=== PATIENT | male | born 1930 | race Asian ===

== ENCOUNTER 2016-08-05 01:41 | Emergency (ER) | payer MEDICARE, OTHER ==
[~2016-08-05] VITALS: Ht 162.6 cm; Wt 70.3 kg
[2016-08-05 04:08] LABS: Basophils # (auto) 0 uL; Eosinophils # (auto) 0 uL; Hematocrit 37.6 % (41.0-53.0); Hemoglobin 12.4 g/dL (13.5-17.5); Lymphocytes # (auto) 0.3 uL; Lymphocytes % (auto) 3.2 % (10.0-50.0); Mean Corpuscular Hemoglobin 29.8 pg (28.0-32.0); Mean Corpuscular Hgb Conc. 33.1 g/dL (32.0-36.0); Mean Corpuscular Volume 89.9 fL (80.0-100.0); Mean Platelet Volume 7.8 fL (7.4-10.4); Monocytes # (auto) 0.9 uL; Monocytes % (auto) 9.6 % (0.0-12.0); Neutrophils # (auto) 8.6 uL; Neutrophils % (auto) 87.2 % (37.0-80.0); Platelet Count (auto) 195 10^3/uL (140-450); Red Cell Distribution Width 13.1 % (11.6-16.0); White Blood Cell 9.8 10^3/uL (4.4-10.8)
[2016-08-05 04:23] LABS: INR 1.05 (0.9-1.15); Partial Thromboplastin Time 27.8 sec (22.64-33.71); Prothrombin Time 10.8 sec (9.37-12.3)
[2016-08-05 04:31] LABS: Albumin 3.2 g/dL (3.4-5.0); Potassium 4.5 mmol/L (3.5-5.1)
[2016-08-05 04:33] LABS: BUN/Creatinine Ratio 17.2
[2016-08-05 04:34] LABS: B-Type Natriuretic Peptide 82.95 pg/mL (0-100)
[2016-08-05 04:36] LABS: Bilirubin, Total 0.4 mg/dL (0.2-1.0); Total Protein 8.4 g/dL (6.4-8.2)
[2016-08-05 04:50] LABS: Temperature: 23.1 C (20.0-25.0)
[2016-08-05 07:48] VITALS: BP 92/57
== END 2016-08-05 08:17 | disposition home or self-care (01) ==
LOC: EDBD 01:41 → ER 01:41 → EDUNIT# 01:41 → ER 08:17
DX: R53.1 Weakness (principal); E11.65 Type 2 diabetes mellitus with hyperglycemia; N28.9 Disorder of kidney and ureter, unspecified; I10 Essential (primary) hypertension; Z86.73 Personal history of transient ischemic attack (TIA), and cerebral infarction without residual deficits
CPT/HCPCS: 36415; 71010; 80053; 82962; 83880; 84484; 85025; 85610; 85730; 93005

== ENCOUNTER 2017-01-18 08:41 | Inpatient (IN) | payer OTHER ==
[~2017-01-18] VITALS: Ht 167.6 cm; Wt 67.0 kg
[2017-01-18] MEDS ORDERED: SODIUM CHLORIDE 0.9% 1,000 ML IV ONE ×3 (09:31→10:27)
[2017-01-18] MEDS ORDERED: ONDANSETRON HCL 4 MG/2 ML VIAL IV ONE (09:45)
[2017-01-18] MEDS ORDERED: MORPHINE SULF INJ 2 MG/ML SYRINGE 1ML IV ONE (09:45)
[2017-01-18 09:56] LABS: CONDITION Y; Hematocrit 42.7 % (41.0-53.0); Hemoglobin 14.6 g/dL (13.5-17.5); Mean Corpuscular Hemoglobin 30.8 pg (28.0-32.0); Mean Corpuscular Hgb Conc. 34.1 g/dL (32.0-36.0); Mean Corpuscular Volume 90.3 fL (80.0-100.0); Mean Platelet Volume 8.8 fL (7.4-10.4); Platelet Count (auto) 214 10^3/uL (140-450); Red Cell Distribution Width 13.5 % (11.6-16.0); White Blood Cell 18.7 10^3/uL (4.4-10.8)
[2017-01-18 09:59] LABS: Metamyelocytes % 0; Myelocytes % 0; Promyelocytes % 0; Reactive Lymphocytes 0
[2017-01-18 10:06] LABS: Albumin 3.7 g/dL (3.4-5.0); BUN/Creatinine Ratio 12.4; Bilirubin, Total 0.6 mg/dL (0.2-1.0); Calcium 9.3 mg/dL (8.5-10.1); Potassium 4.9 mmol/L (3.5-5.1); Total Protein 9.5 g/dL (6.4-8.2)
[2017-01-18 10:19] LABS: Lactic Acid w/Reflex 4.6 mmol/L (0.4-2.0)
[2017-01-18 10:21] LABS: Platelet Estimate Adequate; RBC Morphology Normal
[2017-01-18 10:24] LABS: INR 1.01 (0.9-1.15); Partial Thromboplastin Time 25.7 sec (22.64-33.71)
[2017-01-18] MEDS ORDERED: metroNIDAZOLE 500MG/100ML 100 ML IV ONE (10:30)
[2017-01-18] MEDS ORDERED: cefTRIAXone 1GM/50ML D5W 50 ML IV ONE (10:30)
[2017-01-18 10:34] LABS: B-Type Natriuretic Peptide 61.65 pg/mL (0-100)
[2017-01-18 10:35] LABS: Temperature: 24.6 C (20.0-25.0)
[2017-01-18 10:47] LABS: REFLEX LACTIC ACID YES OR NO YES
[2017-01-18] MEDS ORDERED: ACETAMINOPHEN 325 MG TAB PO PRN (12:00)
[2017-01-18] MEDS ORDERED: ONDANSETRON HCL 4 MG/2 ML VIAL IV PRN (12:00)
[2017-01-18] MEDS ORDERED: TEMAZEPAM 15 MG CAP PO PRN (12:00)
[2017-01-18] MEDS ORDERED: MORPHINE SULF INJ 2 MG/ML SYRINGE 1ML IV PRN ×2 (12:00)
[2017-01-18] MEDS ORDERED: NITROGLYCERIN 0.4 MG SL TAB SL PRN (12:00)
[2017-01-18] MEDS ORDERED: DEXTROSE (50%) 50ML SYRG IV PRN ×2 (12:00)
[2017-01-18] MEDS ORDERED: cloNIDine HCL 0.1 MG TAB PO PRN (12:00)
[2017-01-18] MEDS ORDERED: DOCUSATE SOD 100 MG CAP PO PRN (12:00)
[2017-01-18] MEDS ORDERED: HYDROcodone-ACET 5/325MG TAB PO PRN (12:00)
[2017-01-18 12:09] LABS: Amylase 62 U/L (25-115)
[2017-01-18] MEDS ORDERED: ASPirin-EC 81 mg tab PO ONE (12:15)
[2017-01-18] MEDS: SODIUM CHLORIDE 0.9% 1,000 ML IV SCH ×2 (12:24→21:02)
[2017-01-18 13:24] LABS: Urine Bilirubin Negative (Negative); Urine Blood Negative /uL (Negative); Urine Color Yellow (Yellow); Urine Nitrite Negative (Negative); Urine RBC 1 /hpf (0 - 3); Urine Urobilinogen Normal (Negative); Urine pH 5.5 (5.0-8.0)
[2017-01-18 13:26] LABS: Urine Glucose 4+ mg/dL (Normal); Urine Ketone 1+ (Negative)
[2017-01-18] MEDS: metroNIDAZOLE 500MG/100ML 100 ML IV SCH ×2 (14:00→21:19)
[2017-01-18] MEDS: LISINOPRIL 5 MG TAB PO SCH (14:08)
[2017-01-18] MEDS: FAMOTIDINE 20 MG TAB PO SCH ×2 (14:08→21:19)
[2017-01-18] MEDS: glipiZIDE 5 MG TAB PO SCH ×2 (14:09→17:53)
[2017-01-18] MEDS ORDERED: CLON0.1T PO (14:25)
[2017-01-18] MEDS ORDERED: INSLANTI SC (14:25)
[2017-01-18] MEDS ORDERED: CHOL20007 PO (14:25)
[2017-01-18] MEDS ORDERED: ASPI81CH43 GT (14:25)
[2017-01-18] MEDS ORDERED: GLIP-115 PO (14:25)
[2017-01-18] MEDS ORDERED: LISI2.5T47 PO (14:25)
[2017-01-18 14:27] VITALS: BP 148/91
[2017-01-18 15:08] LABS: Lactic Acid w/Reflex 2.6 mmol/L (0.4-2.0)
[2017-01-18 15:14] LABS: REFLEX LACTIC ACID YES OR NO YES
[2017-01-18 17:00] VITALS: BP 139/72
[2017-01-18] MEDS ORDERED: InsuLIN REG 1unit/0.01ml Soln (100units/ml) SC SCH (17:00)
[2017-01-18] MEDS ORDERED: ACCU-CHEK COMFORT CURVE STRIP VI SCH (17:00)
[2017-01-18] MEDS: ACCU-CHEK COMFORT CURVE STRIP VI SCH ×2 (17:00→21:29)
[2017-01-18] MEDS: InsuLIN REG 1unit/0.01ml Soln (100units/ml) SC SCH ×2 (17:53→21:29)
[2017-01-18] MEDS: ATORVASTATIN 20 MG TAB PO SCH (21:19)
[2017-01-18] MEDS: INSULIN DETEMIR(LEVEMIR) 1unit/0.01ml Soln (100units/ml) SC SCH (21:29)
[2017-01-18 22:00] VITALS: BP 149/90
[2017-01-19] MEDS: SODIUM CHLORIDE 0.9% 1,000 ML IV SCH ×3 (04:44→21:31)
[2017-01-19 05:00] VITALS: BP 138/70
[2017-01-19] MEDS: LEVOTHYROXINE SODIUM 25 MCG TAB PO SCH (06:22)
[2017-01-19] MEDS: metroNIDAZOLE 500MG/100ML 100 ML IV SCH ×3 (06:22→21:49)
[2017-01-19] MEDS: ACCU-CHEK COMFORT CURVE STRIP VI SCH ×4 (06:27→21:50)
[2017-01-19] MEDS: InsuLIN REG 1unit/0.01ml Soln (100units/ml) SC SCH ×4 (06:27→21:50)
[2017-01-19 07:39] LABS: Basophils # (auto) 0 uL; Basophils % (auto) 0.2 % (0.0-2.0); CONDITION Y; Eosinophils # (auto) 0 uL; Eosinophils % (auto) 0.3 % (0.0-7.0); Hematocrit 37.2 % (41.0-53.0); Hemoglobin 12.5 g/dL (13.5-17.5); Lymphocytes # (auto) 1.7 uL; Lymphocytes % (auto) 12.8 % (10.0-50.0); Mean Corpuscular Hemoglobin 30.1 pg (28.0-32.0); Mean Corpuscular Hgb Conc. 33.6 g/dL (32.0-36.0); Mean Corpuscular Volume 89.8 fL (80.0-100.0); Mean Platelet Volume 8.3 fL (7.4-10.4); Monocytes % (auto) 7.6 % (0.0-12.0); Neutrophils # (auto) 10.8 uL; Neutrophils % (auto) 79.1 % (37.0-80.0); Platelet Count (auto) 210 10^3/uL (140-450); Red Cell Distribution Width 13.8 % (11.6-16.0); White Blood Cell 13.7 10^3/uL (4.4-10.8)
[2017-01-19 07:56] LABS: Albumin 2.9 g/dL (3.4-5.0); BUN/Creatinine Ratio 13.2; Bilirubin, Total 0.6 mg/dL (0.2-1.0); Calcium 8.3 mg/dL (8.5-10.1); Potassium 4.4 mmol/L (3.5-5.1); Total Protein 7.9 g/dL (6.4-8.2)
[2017-01-19] MEDS: glipiZIDE 5 MG TAB PO SCH ×3 (08:41→18:23)
[2017-01-19 09:00] VITALS: BP 135/62
[2017-01-19] MEDS ORDERED: cefTRIAXone 1GM/50ML D5W 50 ML IV SCH (09:00)
[2017-01-19] MEDS: LISINOPRIL 5 MG TAB PO SCH (10:27)
[2017-01-19] MEDS: MULTIPLE VITAMIN TAB PO SCH (10:28)
[2017-01-19] MEDS: CHOLECALCIFEROL (VITD3) 1,000 UNIT TAB PO SCH (10:29)
[2017-01-19] MEDS: ASPirin-EC 81 mg tab PO SCH (10:30)
[2017-01-19] MEDS: FAMOTIDINE 20 MG TAB PO SCH (10:30)
[2017-01-19 17:06] VITALS: BP 127/97
[2017-01-19 19:41] LABS: Urine Bilirubin Negative (Negative); Urine Color Yellow (Yellow); Urine Glucose Normal (Normal); Urine Ketone TRACE (Negative); Urine Mucus FEW (None Seen); Urine Nitrite Negative (Negative); Urine RBC 1 /hpf (0 - 3); Urine Squamous Epithelial Cell FEW /hpf (<5); Urine Urobilinogen Normal (Negative)
[2017-01-19 19:46] LABS: Urine Blood 1+ /uL (Negative)
[2017-01-19] MEDS: PANTOPRAZOLE 40 MG TAB PO SCH (21:49)
[2017-01-19] MEDS: SUCRALFATE 1 GM/10 ML ORAL SUSP PO SCH (21:49)
[2017-01-19] MEDS: ATORVASTATIN 20 MG TAB PO SCH (21:49)
[2017-01-19] MEDS: INSULIN DETEMIR(LEVEMIR) 1unit/0.01ml Soln (100units/ml) SC SCH (21:50)
[2017-01-19 22:00] VITALS: BP 145/74
[2017-01-20] MEDS ORDERED: HALOPERIDOL LACTATE 5 MG/ML INJ VIAL IM ONE (04:15)
[2017-01-20 05:00] VITALS: BP 147/87
[2017-01-20] MEDS: SODIUM CHLORIDE 0.9% 1,000 ML IV SCH (05:22)
[2017-01-20] MEDS: LEVOTHYROXINE SODIUM 25 MCG TAB PO SCH (05:31)
[2017-01-20] MEDS: SUCRALFATE 1 GM/10 ML ORAL SUSP PO SCH ×3 (05:32→17:00)
[2017-01-20] MEDS: metroNIDAZOLE 500MG/100ML 100 ML IV SCH (05:32)
[2017-01-20] MEDS: InsuLIN REG 1unit/0.01ml Soln (100units/ml) SC SCH ×3 (05:32→17:00)
[2017-01-20] MEDS: ACCU-CHEK COMFORT CURVE STRIP VI SCH ×3 (05:32→17:00)
[2017-01-20 07:28] LABS: Basophils # (auto) 0 uL; Basophils % (auto) 0.4 % (0.0-2.0); CONDITION Y; Eosinophils # (auto) 0.1 uL; Eosinophils % (auto) 0.5 % (0.0-7.0); Hematocrit 39.4 % (41.0-53.0); Hemoglobin 13.4 g/dL (13.5-17.5); Lymphocytes # (auto) 1.9 uL; Mean Corpuscular Hemoglobin 30.8 pg (28.0-32.0); Mean Corpuscular Hgb Conc. 34.1 g/dL (32.0-36.0); Mean Corpuscular Volume 90.4 fL (80.0-100.0); Mean Platelet Volume 8.7 fL (7.4-10.4); Monocytes % (auto) 8.6 % (0.0-12.0); Neutrophils # (auto) 8.2 uL; Neutrophils % (auto) 73.5 % (37.0-80.0); Platelet Count (auto) 210 10^3/uL (140-450); Red Cell Distribution Width 13.5 % (11.6-16.0); White Blood Cell 11.1 10^3/uL (4.4-10.8)
[2017-01-20 07:56] LABS: BUN/Creatinine Ratio 12.4; Calcium 8.6 mg/dL (8.5-10.1); Magnesium 1.8 mg/dL (1.6-2.6); Potassium 3.9 mmol/L (3.5-5.1); Uric Acid 6.1 mg/dL (3.5-7.2)
[2017-01-20] MEDS: glipiZIDE 5 MG TAB PO SCH ×3 (08:00→18:00)
[2017-01-20 08:30] VITALS: BP 136/99
[2017-01-20] MEDS: LISINOPRIL 5 MG TAB PO SCH (10:00)
[2017-01-20] MEDS: PANTOPRAZOLE 40 MG TAB PO SCH (10:00)
[2017-01-20] MEDS: CHOLECALCIFEROL (VITD3) 1,000 UNIT TAB PO SCH (10:00)
[2017-01-20] MEDS: MULTIPLE VITAMIN TAB PO SCH (10:00)
[2017-01-20] MEDS: ASPirin-EC 81 mg tab PO SCH (10:00)
[2017-01-20] MEDS: D5W/SOD CHLO 0.9% 1,000 ML IV SCH ×2 (10:14→18:30)
[2017-01-20] MEDS ORDERED: HALOPERIDOL LACTATE 5 MG/ML INJ VIAL IM PRN ×2 (10:15→10:30)
[2017-01-20] MEDS ORDERED: LIDOCAINE VISCOUS 2% 15ML UD ONE (10:48)
[2017-01-20] MEDS ORDERED: MIDAZOLAM HCL 5 MG/ML-1ML VIAL ONE (10:48)
[2017-01-20] MEDS ORDERED: SODIUM CHLORIDE LOCK 10 ML ONE (10:48)
[2017-01-20] MEDS ORDERED: fentaNYL CITRATE 100 MCG/2 ML VL ONE (10:49)
[2017-01-20] MEDS ORDERED: diphenhdrAMINE HCL 50 MG/1 ML VL ONE (10:49)
[2017-01-20 13:24] VITALS: BP 152/84
[2017-01-20 14:14] LABS: Albumin 2.8 g/dL (3.4-5.0); Bilirubin, Direct 0.1 mg/dL (0-0.2); Bilirubin, Total 0.4 mg/dL (0.2-1.0); Total Protein 7.1 g/dL (6.4-8.2)
[2017-01-20 16:32] VITALS: BP 147/98
[2017-01-20 18:00] VITALS: BP 158/80
== END 2017-01-20 19:00 | disposition home or self-care (01) | DRG 871 ==
LOC: ER 08:41 → EDBD 08:41 → TELE 08:42 → TELE-E-ADS 13:12 → TELE-CENTR 16:45
PROVIDERS: ADMIT Internal Medicine; ATTEND Internal Medicine
PROC: 0DB88ZX Excision of Small Intestine, Via Natural or Artificial Opening Endoscopic, Diagnostic (ICD-10-PCS; 2017-01-20)
PROC: 0DB68ZX Excision of Stomach, Via Natural or Artificial Opening Endoscopic, Diagnostic (ICD-10-PCS; principal; 2017-01-20 17:12)
DX: A41.9 Sepsis, unspecified organism (principal); N17.0 Acute kidney failure with tubular necrosis; N18.4 Chronic kidney disease, stage 4 (severe); C90.00 Multiple myeloma not having achieved remission; E87.1 Hypo-osmolality and hyponatremia; K22.10 Ulcer of esophagus without bleeding; N17.9 Acute kidney failure, unspecified; E11.65 Type 2 diabetes mellitus with hyperglycemia; E86.0 Dehydration; N28.1 Cyst of kidney, acquired; I12.9 Hypertensive chronic kidney disease with stage 1 through stage 4 chronic kidney disease, or unspecified chronic kidney disease; K44.9 Diaphragmatic hernia without obstruction or gangrene; K29.70 Gastritis, unspecified, without bleeding; K21.0 Gastro-esophageal reflux disease with esophagitis; E03.9 Hypothyroidism, unspecified; E78.5 Hyperlipidemia, unspecified; I25.10 Atherosclerotic heart disease of native coronary artery without angina pectoris; K57.30 Diverticulosis of large intestine without perforation or abscess without bleeding; E11.22 Type 2 diabetes mellitus with diabetic chronic kidney disease; E11.21 Type 2 diabetes mellitus with diabetic nephropathy; Z90.49 Acquired absence of other specified parts of digestive tract; I25.2 Old myocardial infarction
CPT/HCPCS: 36415; 43239; 71010; 74176; 76775; 80048; 80053; 80076; 81001; 82150; 82570; 82962; 83036; 83605; 83690; 83735; 83880; 84156; 84300; 84443; 84484; 84550; 85007; 85025; 85027; 85610; 85730; 86703; 87040; 87086; 88312; 88342; 93005; 93306; 96361; 96365; 96368; 96375; J0696; J1815; J2250; J2405; J3490; J7042